=== PATIENT | female | born 1995 | race African-American/Black ===

== ENCOUNTER 2016-12-18 16:21 | Inpatient (IN) | payer OTHER ==
--- NOTE | ~2016-12-18 | DS ---
Unit #: [id number] #: [id number] Patient: MIGUE BUENROSTRO [id number] [facility] [address] [place] [address] [id number] MR#: [id number] NAME: MIGUE BUENROSTRO ROOM: [facility] Age: 21 Sex: F Admission Date: 12/18/2016 : 1995 Discharge Date: 12/20/2016 Attending Physician: Oscar Wilson M.D. Primary Care Physician: Primary Care Physician No DISCHARGE SUMMARY REASON FOR ADMISSION The patient is a 21-year-old female, admitted with a history of opioid dependence. HOSPITAL COURSE The patient was admitted to the [facility] unit and placed on routine detoxification protocol for opioids. Her stay in the hospital was a brief and uneventful one. On 12/20/2016, she requested discharge and stated that she will be going to "[facility]" for treatment. Discharge was ordered. FINAL DIAGNOSIS Opioid use disorder. DISPOSITION ON DISCHARGE The patient is discharged on no psychotropic or other medications. FOLLOWUP Followup will take place through the auspices of community mental health and chemical dependency treatment resources. PROGNOSIS The patient's prognosis is considered fair. Dictated by... Oscar Wilson M.D. CB/elizabeth TD: 12/21/2016 01:42 JOB #: [id number] DISCHARGE SUMMARY X Oscar Wilson MD X DISCHARGE SUMMARY
--- NOTE | ~2016-12-18 | HP ---
Unit #: [id number] #: [id number] Patient: VERNELL BUENROSTRO [id number] [place] [address] [id number] MR#: [id number] NAME: VERNELL BUENROSTRO ROOM: 73 Age: 21 Sex: F Admission Date: 12/18/2016 : 1995 Attending Physician: Oscar Wilson M.D. Admitting Physician: Oscar Wilson M.D. Primary Care Physician: Primary Care Physician No HISTORY AND PHYSICAL HISTORY OF PRESENT ILLNESS Vernell is a 21-year-old female admitted on 12/18/2016 to [facility] for detox from heroin. PAST MEDICAL HISTORY None. PAST SURGICAL HISTORY None. ALLERGIES None. SOCIAL HISTORY Daily use of heroin. Smokes 1 pack of cigarettes daily. No alcohol use. Also, reports frequent use of amphetamines and Xanax. She is currently single and living with her boyfriend. FAMILY HISTORY Noncontributory. REVIEW OF SYSTEMS CONSTITUTIONAL: No fever or chills. HEENT: Denies any sore throat, ear pain or runny nose. CARDIOVASCULAR: Denies chest pain, irregular heart rhythm or palpitations. CHEST: Denies shortness of breath or cough. No hemoptysis. GASTROINTESTINAL: Denies nausea, vomiting, diarrhea or chronic constipation. ENDOCRINE: Denies history of increased thirst or urination. No recent significant weight loss or gain. GENITOURINARY: Denies dysuria, frequency, or hematuria. SKIN: Denies any rashes. HEMATOLOGIC: Denies history of increased bleeding or bruising. MUSCULOSKELETAL: Denies any hot, swollen joints. No generalized muscle pain. NEUROLOGIC: Denies problems with vision or speech. No frequent, severe headaches. No numbness, tingling or weakness in any extremities. Denies loss of bladder or bowel control. CURRENT MEDICATIONS None. PHYSICAL EXAMINATION Unit #: [id number] #: [id number] Patient: VERNELL BUENROSTRO GENERAL: Alert, oriented, in no acute distress. VITAL SIGNS: Blood pressure 103/66, heart rate 103, respirations 16, temperature 97.5. HEIGHT: 5 feet 2. WEIGHT: 113 pounds. SKIN: Warm and dry without rash or lesion. HEENT: Normocephalic. TMs not viewed. Oral and nasal passages clear. Conjunctivae clear. PERRLA. EOMs intact. NECK: Supple without lymphadenopathy or thyromegaly. HEART: Regular rate and rhythm without murmur. LUNGS: Clear. ABDOMEN: Soft, nontender, without masses or hepatosplenomegaly. : Not done. EXTREMITIES: No evidence of cyanosis, clubbing or edema. Moves all without focal deficit. NEUROLOGICAL: Grossly within normal limits. Cranial Nerves: II: Visual de leon are intact. III, IV AND : Extraocular movements are intact. Pupils are equal, round and reactive to light. V: Facial sensation is grossly normal. VII: Facial movements and expression are normal. VIII: Auditory acuity grossly intact. IX, X: Uvula is midline. Phonation is normal. XI: Patient shrugs shoulders and turns head normally. XII: Tongue protrudes in the midline. Sensory and Motor Function: Sensory and motor sensation is grossly normal. Motor: moves all extremities well. Coordination: Gait is normal. Deep Tendon Reflexes: Intact. IMPRESSION Psychiatric admission. RECOMMENDATIONS PSYCHIATRIC: Per psychiatrist. MEDICAL: No contraindications to participate in facility's activities. MEDICAL PROGNOSIS Good. MEDICAL CONDITION Stable. Dictated by... Petey James/marshall TD: 12/19/2016 17:42 JOB #: [id number] Unit #: [id number] #: [id number] Patient: VERNELL BUENROSTRO HISTORY AND PHYSICAL X ERICA TMEPLE APRN X HISTORY AND PHYSICAL
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
--- NOTE | ~2016-12-18 | PA ---
Unit #: [id number] #: [id number] Patient: MIGUE BUENROSTRO [id number] [place] [address] [id number] MR#: [id number] NAME: MIGUE BUENROSTRO ROOM: P173 Age: 21 Sex: F Admission Date: 12/18/2016 : 1995 Date of Assessment: 12/20/2016 Attending Physician: Oscar Wilson M.D. Admitting Physician: Oscar Wilson M.D. Primary Care Physician: Primary Care Physician No PSYCHIATRIC ASSESSMENT IDENTIFYING INFORMATION The patient is a 21-year-old female admitted with a history of heroin addiction. CHIEF COMPLAINT None given. INFORMANT(S) The patient, reliability is good. HISTORY OF PRESENT ILLNESS The patient is a 21-year-old female admitted to the [address] [place] [address] with a history of intravenous heroin abuse of approximately one year duration. The patient is reportedly scheduled to go to [facility] for treatment in the near future and then come to this facility for detox. When seen today the patient exhibits little in the way of signs or symptoms of withdrawal. She is bright and euthymic and is denying suicidal or homicidal ideation. The patient lives with her boyfriend. Her highest level of education is ninth grade. The patient today is bright and euthymic and denying any thoughts of suicide. PAST PSYCHIATRIC HISTORY The patient was hospitalized at this facility as an adolescent. PAST MEDICAL HISTORY Noncontributory. MEDICATIONS None. ALLERGIES None. FAMILY HISTORY Noncontributory. SOCIAL HISTORY The patient lives with her boyfriend. She is the mother of a [id number] child of whom she has not have custody. She reports substance use as noted previously. MENTAL STATUS EXAMINATION At this time reveals the patient to be a well-developed, well-nourished Unit #: [id number] #: [id number] Patient: MIGUE BUENROSTRO female, appearing her stated age. She is in no apparent physical distress at the time of examination. She is awake, alert, and oriented in all spheres. Her mood is mildly dysphoric. His affect constricted. Speech is generally relevant and coherent. There are no gross deficits in memory or cognition noted. Intelligence is judged to be in the average range based on fund of knowledge. The patient is cooperative throughout the interview. She is currently denying suicidal or homicidal ideation or psychotic features. Judgment and insight appear to be intact. ASSETS AND LIABILITIES ASSETS: Motivation for changes, supportive family. LIABILITIES: None noted. DIAGNOSTIC IMPRESSION Opioid use disorder. PSYCHIATRIC PLAN/TREATMENT GOALS The patient is requesting discharge today and is scheduled to go to [facility] per her report discharge will be ordered. Dictated by... Oscar Wilson M.D. YARI/danette TD: 12/21/2016 00:21 JOB #: [id number] PSYCHIATRIC ASSESSMENT X Oscar Wilson MD X PSYCHIATRIC ASSESSMENT
[2016-12-19 10:02] LABS: BASOPHIL# 0.1 X10e3 (0-0.3); BASOPHIL% 0.4 % (0-2.5); EOSINOPHIL# 0.2 X10e3 (0-0.7); EOSINOPHIL% 1.2 % (0.0-7.0); HEMATOCRIT 38.2 % (35.0-45.0); HEMOGLOBIN 12.7 gm/dL (12.0-16.0); LYMPHOCYTE# 3.2 X10e3 (1.0-3.5); LYMPHOCYTE% 22.5 % (17.0-45.0); MEAN CELL VOLUME 91.3 FL (83-96); MEAN CORPUSCULAR HEMOGLOBIN 30.2 PG (28-34); MEAN CORPUSCULAR HGB CONC 33.1 g/dL (30-36); MONOCYTE# 0.6 X10e3 (0-1.0); MONOCYTE% 4.1 % (3.0-12.0); NEUTROPHIL# 10.3 X10e3 (1.5-7.1); NEUTROPHIL% 71.8 % (40-75); PLATELET COUNT 287 X10e3 (140-420); RED BLOOD COUNT 4.19 X10e (3.90-5.30); RED CELL DISTRIBUTION WIDTH 12.5 % (11.0-15.5); WHITE BLOOD COUNT 14.3 X10e3 (4.0-10.5)
[2016-12-19 10:04] LABS: DIFF IND NO
[2016-12-19 11:04] LABS: ALBUMIN SERUM 4.3 g/dL (3.5-5.0); ALKALINE PHOSPHATASE 59 U/L (32-92); ALT (SGPT) 12 U/L (10-40); AST (SGOT) 13 U/L (10-42); BILIRUBIN,TOTAL 0.3 mg/dL (0.2-2.0); BLOOD UREA NITROGEN 13 mg/dL (9-23); CALCIUM SERUM 9.1 mg/dL (8.4-10.2); CARBON DIOXIDE 26 mmol/L (22-31); CHLORIDE 106 mmol/L (100-111); CREATININE SERUM 0.5 mg/dL (0.6-1.4); GLOM FILT RATE Estimated ABOVE60 mL/min (>60); GLUCOSE FASTING 83 mg/dL (70-110); POTASSIUM 4.3 mmol/L (3.5-5.1); PROTEIN TOTAL SERUM 6.9 g/dL (6.0-8.3); SODIUM 139 mmol/L (135-145)
[2016-12-19 11:10] LABS: THYROID STIMULATING HORMONE 0.18 uIU/ml (0.34-5.60)
[2016-12-19 11:17] LABS: FREE THYROXIN (T4) 0.85 ng/dL (0.58-1.64)
[2016-12-23 08:53] LABS: HA AB IGM (HEPPAN) Nonreactive (Nonreactive); HB CORE AB IGM (HEPPAN) Nonreactive (Nonreactive); HB S AG (HEPPAN) Nonreactive (Nonreactive); HEP C AB (HEPPAN) Nonreactive (Nonreactive); HEP C AB SIGNAL TO CUTOFF 0.06 ratio (<1.00)
== END 2016-12-20 14:45 | disposition home or self-care (01) | DRG 897 ==
LOC: P1E 16:21
PROVIDERS: Specialist
PROC: HZ2ZZZZ Detoxification Services for Substance Abuse Treatment (ICD-10-PCS; principal; 2016-12-18)
DX: F11.10 Opioid abuse, uncomplicated (principal); F15.10 Other stimulant abuse, uncomplicated; F17.200 Nicotine dependence, unspecified, uncomplicated
CPT/HCPCS: 80053; 80074; 84439; 84443; 84703; 85025; 86592; 87806